=== PATIENT | female | born 1990 | race Caucasian/White ===

== ENCOUNTER 2025-04-29 06:53 | Emergency (ER) | payer OTHER, SELFPAY ==
[2025-04-29 06:55] VITALS: BP 146/96
[2025-04-29 07:36] VITALS: BMI 37.0
--- NOTE | 2025-04-29 07:48 | ED.GENMED ---
History of Present Illness
General
Chief Complaint: Musculo-Skeletal Complaint
Source: patient
Exam Limitations: none
Time Seen by Provider: 04/29/25 07:37
Nursing documentation reviewed up to this point in time: agreed with
History of Present Illness
History of Present Illness:
Patient is a 35-year-old female presents to the ER for evaluation of left ankle injury. She reports that she twisted her ankle last evening around 6 PM and has had pain to the lateral area since. She has been hobbling on the ankle reports cannot
bear full weight. No other injuries.
Past History
Past History
ED Past Medical History: Psychiatric and Other (Depression, anxiety, PTSD)
ED Past Surgical History: None
Social History
Tobacco: Non-smoker
Alcohol: None
Drug: None
Personal: Single
Living: with family
Phy Exam
General Physical Exam
General Presentation: no apparent distress
General age: appears stated age
General Skin: warm and dry
General Habitus: normal
General Mental: alert
General Hydration: appears well hydrated
Neurological Exam
Neurological Exam: alert and oriented x3
Musculoskeletal Exam
Musculoskeletal Exam: other (Left lower extremity with strong pulses lateral ankle with mild swelling no proximal fifth metatarsal tenderness or proximal tib-fib tenderness)
Skin Exam
Skin Exam: normal color and warm/dry
Psychiatric Exam
Psychiatric Exam: normal mood/affect
Course
Orders/Labs/Results
Orders:
Orders
04/29/25 07:38
Ankle, left 3 view CR [CR Ankle - Left Min 3 Views ] Urgent
Comment:
Reason For Exam: pain/injury
04/29/25 07:50
Vital Signs- Treatment ONCE
Frequency: Once
04/29/25 08:10
Air Splint Left-Treatment ONCE
04/29/25 08:11
Luis Fernando Wrap Left-Treatment ONCE
Crutches-Treatment ONCE
Vital Signs
Initial and Last Documented VS:
Initial Vital Signs
Temp Pulse Resp BP Pulse Ox
98.5 F 118 16 146/96 99
04/29/25 06:55 04/29/25 06:55 04/29/25 06:55 04/29/25 06:55 04/29/25 06:55
Last Documented Vital Signs
Temp Pulse Resp BP Pulse Ox
98.5 F 118 16 146/96 99
04/29/25 06:55 04/29/25 06:55 04/29/25 06:55 04/29/25 06:55 04/29/25 07:50
MDM/Problems Addressed
Differential Diagnosis Includes:
Not limited to sprain strain fracture
MDM/Problems Addressed:
Symptoms are consistent with sprain will DC with Luis Fernando wrap air splint crutches as needed. Reviewed RICE NSAIDs, outpatient Ortho follow-up if needed
*Radiology
Radiology exam reviewed: preliminary read by ED provider
*Pulse Oximetry
SaO2: 99
Oxygen Mode of Delivery: Room air
Patient hypoxic: no
*Critical Care Note
Total Time (30-74mins, 75-104mins- exclusive of procedures): Not Applicable
ED Attending Note
-
Portions of this chart may have been created with voice recognition software.� Occasional wrong word or��sound alike� substitutions may have occurred due to the inherent limitations of voice recognition software.
Discharge Plan
Departure
Patient Disposition: Home (Routine Discharge)
Date of Disposition: 04/29/25
Time of Disposition: 08:12
Patient with high blood pressure during this ER visit?: Yes
Condition: Fair
Covid-19: Not Applicable
Discharge Problem:
Left ankle sprain
Instructions: How to Use Crutches, Sprain (DC)
Referrals:
Parminder Tavares, [Family Provider, [facility]]
Reyna,Maira I., DO [Active, Orthopedics]
Activity Restrictions/Additional Instructions:
As discussed wear Luis Fernando wrap and air splint for support throughout the next 2 days keep elevated. Remove at night while sleeping and keep elevated. Ice the affected area for the next 24 hours 20 minutes at a time several times a day. Use crutches
for ambulation. No crutches on steps. You may take ibuprofen every 8 hours with food. Follow-up with family doctor next 2 days and orthopedics if needed. Return if any worsening of symptoms.
Interventions
Interventions:
*Risk Screen - Suicide Last Done: 04/29/25 06:56
*General Assessment Last Done: 04/29/25 07:37
*Neglect/Abuse Screening Last Done: 04/29/25 06:56
*ED- Fall Risk Assessment Last Done: 04/29/25 07:37
*ED COVID-19 Vaccine History Last Done: 04/29/25 07:37
*ED Influenza Vaccine History Last Done: 04/29/25 07:37
ED-Musculoskeletal Assessment Last Done: 04/29/25 07:40
Discharge Date and Time
Print Language: BENINESE
[2025-04-29 08:00] VITALS: BP 105/70
== END 2025-04-29 09:09 | disposition home or self-care (01) ==
LOC: EMR 06:53
PROVIDERS: EMERGENCY PHYSICIAN Emergency Medicine; FAMILY PHYSICIAN Family Medicine
DX: S93.402A Sprain of unspecified ligament of left ankle, initial encounter (principal); X50.1XXA Overexertion from prolonged static or awkward postures, initial encounter; F32.A Depression, unspecified; F41.9 Anxiety disorder, unspecified; F43.10 Post-traumatic stress disorder, unspecified
CPT/HCPCS: 99283; 73610